=== PATIENT | female | born 1990 ===

== ENCOUNTER 2021-05-05 06:45 | Inpatient (IN) | payer MEDICAID ==
[~2021-05-05 06:45] MED LIST: Dexamethasone 4 MG/ML SDV ONE; Glycopyrrolate 0.2 MG/ML 5 ML MDV ONE; Midazolam 1 MG/ML 2 ML SDV ONE; Neostigmine Methylsulfate 1 MG/ML 5 ML Syringe ONE; Ondansetron 4 MG/2 ML SDV ONE; Propofol 200 MG/20 ML SDV ONE; Rocuronium 50 MG/5 ML Vial ONE; fentaNYL 250 MCG/5 ML SDV ONE
[2021-05-05] MEDS ORDERED: cefOXitin 2 GM Vial ONE (07:02)
[2021-05-05 07:28] LABS: HEMOGLOBIN A1C 5.6 % (4.5-6.2)
[2021-05-05] MEDS ORDERED: Scopolamine 1.5 MG Transdermal Patch TOP ONE (07:30)
[2021-05-05] MEDS ORDERED: Celecoxib 200 MG Cap PO ONE ×2 (07:30→07:58)
[2021-05-05] MEDS ORDERED: Acetaminophen 500 MG Tab PO ONE (07:30)
[2021-05-05] MEDS ORDERED: Dextrose 5%-Lactated Ringers 1,000 ML IV SCH (08:30)
[2021-05-05] MEDS ORDERED: Ketamine 500 MG/5 ML MDV IV SCH (08:45)
[2021-05-05] MEDS ORDERED: Ketamine 14 MG in Sodium Chloride 0.9% 19.86 ML IV SCH (08:45)
[2021-05-05] MEDS ORDERED: Levofloxacin/Dextrose 5%-Water 500 MG in Premix Bag 1 BAG IV ONE (09:00)
[2021-05-05] MEDS ORDERED: Meropenem 500 MG SDV ONE (09:09)
[2021-05-05] MEDS ORDERED: Rocuronium 50 MG/5 ML Vial ONE (09:25)
[2021-05-05] MEDS ORDERED: hydrOXYzine HCL 100 MG/2 ML SDV IM ONE (11:00)
[2021-05-05] MEDS ORDERED: fentaNYL 100 MCG/2 ML SDV IVPUSH ONE (11:00)
[2021-05-05] MEDS ORDERED: Acetaminophen 500 MG Tab PO SCH (12:00)
[2021-05-05] MEDS ORDERED: Cyclobenzaprine 10 MG Tab PO PRN (12:10)
[2021-05-05] MEDS: Dextrose 5%-Lactated Ringers 1,000 ML IV SCH ×2 (12:26→21:53)
[2021-05-05] MEDS ORDERED: Ondansetron 4 MG/2 ML SDV IVPUSH PRN (13:00)
[2021-05-05] MEDS ORDERED: Acetaminophen 500 MG Tab PO PRN (13:00)
[2021-05-05] MEDS ORDERED: Metoclopramide 10 MG/2 ML SDV IVPUSH PRN (13:00)
[2021-05-05] MEDS ORDERED: diphenhydrAMINE 50 MG/ML SDV IVPUSH PRN (13:00)
[2021-05-05] MEDS ORDERED: HYDROmorphone 0.5 MG/0.5 ML Syringe IVPUSH PRN (13:00)
[2021-05-05] MEDS ORDERED: oxyCODONE 5 MG Tab PO PRN (13:00)
[2021-05-05] MEDS ORDERED: hydrOXYzine HCL 100 MG/2 ML SDV IM PRN (13:00)
[2021-05-05] MEDS ORDERED: Labetalol 20 MG/4 ML Syringe IVPUSH PRN (13:00)
[2021-05-05] MEDS ORDERED: HYDROmorphone 1 MG/ML Syringe IV PRN (13:00)
[2021-05-05] MEDS ORDERED: Calcium Gluconate 10% 1 GM/10 ML SDV IVPUSH PRN (13:00)
[2021-05-05] MEDS: Pantoprazole 40 MG Vial IVPUSH SCH (14:20)
[2021-05-05] MEDS: traMADol 50 MG Tab PO PRN ×2 (14:28→21:52)
[2021-05-05] MEDS: MVI, Adult with Vitamin K 10 ML, Thiamine 200 MG, Zinc/Copper/Manganese/Selenium 1 ML i... IV SCH ×4 (15:58)
[2021-05-05] MEDS: Acetaminophen 500 MG Tab PO SCH (16:01)
[2021-05-05] MEDS: Heparin Sodium 5,000 Units/ML Vial SUBCUT SCH (17:45)
[2021-05-06] MEDS: Acetaminophen 500 MG Tab PO SCH (00:29)
[2021-05-06] MEDS ORDERED: Iopamidol 612 MG/ML 50 ML SDV PO STA (02:51)
[2021-05-06] MEDS: Heparin Sodium 5,000 Units/ML Vial SUBCUT SCH ×2 (05:51→17:29)
[2021-05-06] MEDS ORDERED: Ondansetron 4 MG Tab.DIS PO PRN (06:56)
[2021-05-06] MEDS ORDERED: hydrOXYzine HCl 25 MG Tab PO PRN (06:56)
[2021-05-06] MEDS ORDERED: Benzocaine/Cetylpyridinium/Menthol Lozenge MUCMEM PRN (07:11)
--- NOTE | 2021-05-06 07:50 | PN ---
DATE OF SERVICE: 05/06/2021 SUBJECTIVE: Giovana is postop day 1 following a laparoscopic sleeve gastrectomy. Her upper GI was normal. She does report some discomfort when drinking liquids. Reports her throat is dry and sore. Oral intake 240, output 4950. EUFEMIA drain put out 85 mL of a light red drainage. Remainder of review of systems negative for any pertinent positives or negatives. OBJECTIVE: GENERAL: Giovana is a pleasant 31-year-old female. She is alert and orientated, sitting up in the chair. GENERAL: TPR; 98.5, 72, 16. Blood pressure 98/48. O2 is 95% on room air. HEENT: Negative. NECK: Supple. HEART: Regular rate and rhythm. LUNGS: Clear. ABDOMEN: Dressing is dry and intact. Abdominal binder is on. EUFEMIA drain as above. EXTREMITIES: Without peripheral edema. ASSESSMENT: Diagnostic laparoscopy with: 1. Laparoscopic sleeve gastrectomy. 2. Liver biopsy. 3. Repair of paraesophageal diaphragmatic hernia with mesh. POSTOPERATIVE DIAGNOSES: 1. Morbid obesity. 2. Hepatomegaly. 3. Paraesophageal hernia. Date of procedure: 05/05/2021. Surgeon: Chele Harrison MD. PLAN: 1. Decrease IV to 100 mL per hour. 2. Dressing off, may shower. 3. Step 2 gastric bypass diet without cereal. 4. Discontinue telemetry and continuous pulse ox. 5. Change in Tylenol to liquid, 1000 mg scheduled q.8 hours. 6. Communication order, 3 med cups per hour, record at bedside. The patient instructed to space these out one every 20 minutes. 7. Atarax 50 mg q.4 hours p.r.n. pain. 8. Zofran ODT 4 mg q.4 hours sublingual p.r.n. nausea. 9. Stressed the importance of using incentive spirometer 10 times every hour while awake. The patient has not used it since she has been out of surgery. Encouraged to ambulate 6 times today. 10.We will evaluate p.r.n. or in a.m. Dulce Maria Gabriel PA-C /[id number]
[2021-05-06] MEDS: Acetaminophen Soln 650 MG/20.3 ML UD Cup PO SCH ×3 (08:31→20:40)
[2021-05-06] MEDS: Celecoxib 200 MG Cap PO SCH ×2 (08:37→20:37)
[2021-05-06] MEDS: Levofloxacin/Dextrose 5%-Water 500 MG in Premix Bag 1 BAG IV SCH (08:41)
--- NOTE | 2021-05-06 10:25 | CR ---
[facility] [employer] HISTORY: Post gastric surgery FINDINGS: Patient swallowed water-soluble contrast. Upright views of the abdomen show no evidence of extravasation or obstruction. There is a surgical drain in the left upper quadrant. There are surgical clips in the right upper quadrant and epigastric region. IMPRESSION: Status post gastric sleeve surgery No extravasation or obstruction seen
[2021-05-06] MEDS: SCOPOLAMINE PATCH CHECK TOP SCH (10:32)
[2021-05-06] MEDS: Dextrose 5%-Lactated Ringers 1,000 ML IV SCH (10:35)
--- NOTE | 2021-05-06 14:02 | OR ---
DATE OF PROCEDURE: 05/05/2021 SURGEON: Chele Harrison MD PREOPERATIVE DIAGNOSIS: Morbid obesity. POSTOPERATIVE DIAGNOSES: 1. Morbid obesity. 2. Marked hepatomegaly. 3. Paraesophageal diaphragmatic hernia. OPERATIVE PROCEDURE: Diagnostic laparoscopy with: 1. Laparoscopic sleeve gastrectomy (86124). 2. Adrian-Cut needle liver biopsy (35194). 3. Repair of paraesophageal diaphragmatic hernia with mesh (74990). ANESTHESIA: General. MANAGER OF SALES: Dulce Maria Gabriel PA-C INDICATIONS FOR PROCEDURE: This is a 31-year-old female presenting with longstanding morbid obesity and increasingly significant comorbidities. After preoperative evaluation and discussion, she wished to proceed with a sleeve gastrectomy. Potential risks of the procedure including bleeding, infection, injury to underlying viscera, problems with leakage from the staple line, as well as possibility of cardiopulmonary, septic, or hemorrhagic complications leading to were discussed, and the patient wishes to proceed. DETAILS OF PROCEDURE: The patient was taken to the operating room, and after general endotracheal anesthesia was induced, she was placed in a lithotomy position and the abdomen prepped and draped. 15 cm inferior and 5 cm left of the xiphoid process, a transverse incision was made and the peritoneal cavity entered under direct vision with an Optiview trocar and inflated to 15 mmHg pressure with CO2. Laparoscope was then reinserted. No underlying trocar insertion site injuries were seen. Following this, 5 additional trocars were placed across the upper mid abdomen, and bilateral transversus abdominis plane blocks were placed. The patient was noted to have marked fatty infiltration of the liver with the liver being mildly enlarged, with liver biopsies then being obtained from the left lobe of the liver. Minimal bleeding from the biopsy site was controlled with electrocautery. The liver was then retracted anteriorly. The patient was noted to have a very large paraesophageal hernia containing perigastric fat, some gastric fundus, and omentum. This was reduced and the decision made to proceed with a formal crural-type repair with augmentation with mesh. The peritoneum on the anterior and then the lateral sides of the distal esophagus was then divided. This allowed eventually dissection of the esophagus away from the crura on each side and a retrocrural window created. Further dissection resulted in roughly 4 cm length of intra-abdominal esophagus. Also, crural repair was initially accomplished with 0 Ethibond sutures reinforced with PTFE pledgets. The crural repair was then augmented with a Phasix ST mesh cut in a horseshoe configuration such that it would lie posterior to the esophagus and overlying the crural repair, and it was tacked down on each side with a titanium tacking screws to the adjacent crura. At this point, attention was taken to the sleeve gastrectomy phase. The lesser curvature of the stomach was then divided away from the omentum with the Harmonic scalpel. This dissection was then continued proximally across the short gastric vessels including the highest posterior short gastric vessels, and there was full skeletonization of the gastric fundus away from the left jurgen of the diaphragm. The dissection of the omentum then continued distally to a point 2 cm proximal to the pylorus. The initial staple line across the antrum and underneath the incisura angularis was then marked out with electrocautery and positioned such as to avoid overtightening of the incisura angularis. The first few firings of the seng were done with reinforced MARCO A black loads. At that point, Anesthesia placed a 32-Thai suction tube orally across the esophagogastric junction along the lesser curvature of the stomach and was pushed up against the lesser curvature where suction was then applied. The remainder of the sleeve gastrectomy was accomplished with a MARCO A reinforced black load using the 32-Thai tube as a template. Upon completion of the division of the stomach, it was displaced off to the side. Fibrin sealant was then placed along the staple line, focusing on the area of the esophagogastric junction where omentum was also then tacked up over that area. A leak test was accomplished with injection into the stomach with no bubbles or bleeding seen while the area was submerged with antibiotic-containing saline solution. The stomach was then retrieved through the left lateral trocar site, and a single Randal-Yee drain was placed through the left lateral trocar site and positioned adjacent to the gastroesophageal junction, and from there, into the splenic fossa with no further problems noted. Trocars were removed and the peritoneal cavity deflated. The incision was closed with some 4-0 Vicryl skin stitch and drains fixed with 4-0 Vicryl stitch as well. The patient was taken to the recovery room in satisfactory condition. Physician insurance legal assistant, Dulce Maria Gabriel, played an essential role in assisting in this case, helping to position the patient, retract structures as needed, as well as suturing and cutting sutures when indicated. Her presence improved the patient's safety and decreased the operative time. Chele Harrison MD Job #: [id number]
[2021-05-06] MEDS: Pantoprazole 40 MG Vial IVPUSH SCH (14:16)
[2021-05-06] MEDS: MVI, Adult with Vitamin K 10 ML, Thiamine 200 MG, Zinc/Copper/Manganese/Selenium 1 ML i... IV SCH ×4 (17:28)
[2021-05-06] MEDS: traMADol 50 MG Tab PO PRN (22:57)
[2021-05-07] MEDS: Dextrose 5%-Lactated Ringers 1,000 ML IV SCH (03:48)
[2021-05-07] MEDS: Acetaminophen Soln 650 MG/20.3 ML UD Cup PO SCH ×3 (04:28→07:14)
[2021-05-07] MEDS: Heparin Sodium 5,000 Units/ML Vial SUBCUT SCH (06:04)
[2021-05-07] MEDS: traMADol 50 MG Tab PO PRN ×2 (06:21→12:03)
[2021-05-07] MEDS: Levofloxacin/Dextrose 5%-Water 500 MG in Premix Bag 1 BAG IV SCH (08:15)
[2021-05-07] MEDS: Celecoxib 200 MG Cap PO SCH (08:15)
[2021-05-07] MEDS: SCOPOLAMINE PATCH CHECK TOP SCH (08:21)
[2021-05-07] MEDS ORDERED: Cyanocobalamin (Vitamin B12) 1,000 MCG/ML SDV IM ONE (09:00)
[2021-05-07] MEDS ORDERED: Magnesium Hydroxide 400 MG/5 ML Susp 30 ML Cup PO PRN (10:03)
--- NOTE | 2021-05-08 15:06 | DISCH ---
FINAL DIAGNOSES: 1. Morbid obesity. 2. Marked hepatomegaly. 3. Moderate-sized paraesophageal diaphragmatic hernia. ADDITIONAL DIAGNOSES: 1. Acne vulgaris. 2. Allergic rhinitis. 3. Polycystic ovary syndrome. 4. Gastroesophageal reflux disease. OPERATIVE PROCEDURE: Done on 05/05, diagnostic laparoscopy with: 1. Laparoscopic sleeve gastrectomy. 2. Adrian-Cut needle liver biopsy. 3. Repair of paraesophageal diaphragmatic hernia with mesh. SUMMARY: This is a 31-year-old female, presenting with longstanding morbid obesity, increasingly significant comorbidities. After preoperative evaluation and discussion, she wished to proceed with a sleeve gastrectomy. At the time of the procedure, the patient was noted to have marked hepatomegaly and liver biopsy was obtained, and a fairly large paraesophageal hernia and she had a formal posterior crural repair augmented with an absorbable mesh. With this, she had some dysphagia referable to the distal esophagus, but that should be improving. She tolerated the liquid diet and will be sent home on a step-2 diet for 1 month postoperatively. MEDICATIONS ON DISCHARGE: Include Celebrex 200 mg b.i.d.; Tylenol 1 g q.6 hours p.r.n. pain; and Ultram 50 mg q.6 hours p.r.n. pain, #18. She will be instructed to hold on her vitamins and other supplements until after the first appointment, which will be with Dulce Maria Gabriel at [facility] on 05/17/2021. /[id number]
== END 2021-05-07 12:35 | disposition home or self-care (01) | DRG 621 ==
LOC: JP.SDS 06:45 → EDSTATUS 07:15 → JP.MS 10:35 → UNDOADMIN 11:50 → JP.MS 11:50
PROVIDERS: ADMIT Surgery; ATTEND Surgery
PROC: 0DB64Z3 Excision of Stomach, Percutaneous Endoscopic Approach, Vertical (ICD-10-PCS; principal; 2021-05-05)
PROC: 0FB24ZX Excision of Left Lobe Liver, Percutaneous Endoscopic Approach, Diagnostic (ICD-10-PCS; 2021-05-05)
PROC: 0BUT4JZ Supplement Diaphragm with Synthetic Substitute, Percutaneous Endoscopic Approach (ICD-10-PCS; 2021-05-05)
DX: E66.01 Morbid (severe) obesity due to excess calories (principal); R16.0 Hepatomegaly, not elsewhere classified; K44.9 Diaphragmatic hernia without obstruction or gangrene; L70.0 Acne vulgaris; J30.9 Allergic rhinitis, unspecified; E28.2 Polycystic ovarian syndrome; K21.9 Gastro-esophageal reflux disease without esophagitis; Z88.0 Allergy status to penicillin; Z68.42 Body mass index [BMI] 45.0-49.9, adult
CPT/HCPCS: 36415; 74240; 74240-26; 80053; 81025; 83036; 84100; 85027; 86850; 86900; 86901; 94762; A9270-GY; C1713; C1781; C9113; J0171; J0694; J1100; J1170; J1644; J1956; J2185; J2250; J2405; J2704; J2710; J2795; J3010; J3410; J3411; J3420; J3490; J7121; Q9967